=== PATIENT | female | born 1985 | race Caucasian/White ===

== ENCOUNTER 2016-09-07 10:29 | Emergency (ER) | payer OTHER ==
[~2016-09-07] VITALS: Ht 172.7 cm; Wt 104.3 kg
[~2016-09-07 10:29] MED LIST: ATIVAN0.5 M1 PO; AYGESTIN5 MG PO; IBUPROFEN800 MG PO; KEFLEX500 M1 PO; LEXAPRO20 M1 PO; LIDOCAINE51 TOP; LIDODERM 5% PAT1 PAT TOP; PERCOCET 325 MG1 TA2 PO; PRENATAL1 TA2 PO; [UNRECOGNIZED DRUG - OTHER] PO
--- NOTE | 2016-09-07 11:21 | ED GI/GU/ABDOMINAL COMPLAINT ---
History of Present Illness General Chief Complaint: Female Urogenital Problems Stated Complaint: MENSTRUAL BLEEDING X 4 WEEKS,CRAMPING Source: patient, family Exam Limitations: no limitations Vital Signs & Intake/Output Vital Signs & Intake/Output Vital Signs Date Time Temp Pulse Resp B/P Pulse O2 O2 Flow FiO2 Ox Delivery Rate 09/07 1042 96.7 80 16 119/76 97 Room Air Allergies Coded Allergies: chlorhexidine (Intermediate, RASH 04/25/16) Reconcile Medications Escitalopram Oxalate (Lexapro) 20 MG TABLET 1 TAB PO DAILY MENTAL HEALTH ( Reported) Lorazepam (Ativan) 0.5 MG TABLET 1 TAB PO BIDP PRN ANXIETY (Reported) Norethindrone (Aygestin) 5 MG TABLET 1 TAB PO QPM MENSTRUAL BLEEDING ( Reported) Triage Note: PT STATES SHE HAS HAD HER MENSES SINCE . AND SHE HAS BEEN GETTING MIRGRAINS SINCE. PT STATES SHE FEELS HERNANDEZ IN HER SHOULDERS AND NECK AND IS HAVING BAD CRAMPING. PT CALLED HER OBGYN DR. PLAZA AND WAS TOLD TO COME TO ED BECAUSE SHE HAS BEEN BLEEDING FOR SO LONG. PT STATES SHE HAS BEEN USING 1 PAD EVERY 2 HOURS AND SHE HAS A LOT OF CLOTS. Triage Nurses Notes Reviewed? yes ? n Is pt currently ? No HPI: Patient presents to the emergency department with vaginal bleeding that she has been experiencing for the past 4 weeks constant. Patient states she goes through a pad approximately every 2 hours and she is getting multiple clots in the point that she also has to wear depend over the pad. Patient denies any pain. Patient states for the past 2 days she has been feeling lightheaded when she stands up and walks around. There is no nausea or vomiting. There are no fevers or chills. Patient called her resin maker and was instructed to come to the emergency room for evaluation. Past History Travel History Traveled to [place] past 21 day No Medical History Any Pertinent Medical History? see below for history Psychiatric: anxiety, depression Surgical History Surgical History: Psychosocial History What is your primary language Tongan Tobacco Use: Current Daily Use Daily Tobacco Use Amount/Type: => 5 Cigarettes daily ETOH Use: occasional use Illicit Drug Use: denies illicit drug use Family History Hx Contributory? No Review of Systems Review of Systems Constitutional: Reports: no symptoms. EENTM: Reports: no symptoms. Respiratory: Reports: no symptoms. Cardiovascular: Reports: no symptoms. GI: Reports: no symptoms. Genitourinary: Reports: see HPI. Musculoskeletal: Reports: no symptoms. Skin: Reports: no symptoms. Neurological/Psychological: Reports: no symptoms. Hematologic/Endocrine: Reports: no symptoms. Immunologic/Allergic: Reports: no symptoms. All Other Systems: Reviewed and Negative Physical Exam Physical Exam General Appearance: well developed/nourished, alert, awake, mild distress Head: atraumatic, normal appearance Eyes: Bilateral: PERRL, EOMI, other (PINK CONJUNCTIVA). Ears, Nose, Throat, Mouth: hearing grossly normal, moist mucous membrane Neck: normal inspection, supple, full range of motion Respiratory: normal breath sounds, chest non-tender, no respiratory distress, lungs clear Cardiovascular: regular rate/rhythm, normal peripheral pulses Gastrointestinal: normal bowel sounds, soft, non-tender, no organomegaly Pelvic: slow trickle of blood from the os Back: normal inspection, normal range of motion Extremities: normal range of motion Neurologic/Psych: no motor/sensory deficits, awake, alert, oriented x 3, normal gait, normal mood/affect Skin: intact, normal color, warm/dry Core Measures ACS in differential dx? No Severe Sepsis Present: No Septic Shock Present: No Progress Differential Diagnosis: ectopic , intrauterine , PID/ cervicitis, threatened AB, UTI/pyelo Plan of Care: Orders Procedure Date/time Status URINALYSIS 09/07 1034 Active HUMAN BETA HCG TITRE 09/07 1034 Complete COMPREHENSIVE METABOLIC PANEL 09/07 1034 Complete CBC WITHOUT DIFFERENTIAL 09/07 1034 Complete Current Medications Sig/Dottie Start time Last Medication Dose Stop Time Status Admin Ketorolac 30 MG ONCE ONE 09/07 1130 CAN Tromethamine 09/07 1131 (Toradol) Sodium Chloride 1,000 ML BOLUS ONE 09/07 1130 CAN (Normal Saline 0.9%) 09/07 1229 Laboratory Tests 09/07/16 1134: Anion Gap 8, Estimated GFR > 60, BUN/Creatinine Ratio 14.3, Glucose 100 H, Calcium 9.4, Total Bilirubin 0.4, AST 14, ALT 25, Alkaline Phosphatase 47, Total Protein 6.9, Albumin 4.2, Globulin 2.7, Albumin/Globulin Ratio 1.6, Beta HCG, Quant < 2.4, CBC w Diff NO MAN DIFF REQ, RBC 4.73, MCV 83.7, MCH 27.7, RDW 17.4 H, MPV 8.6, Gran % 78.7 H, Lymphocytes % 17.8 L, Monocytes % 3.0, Eosinophils % 0.4, Basophils % 0.1, Absolute Granulocytes 8.7 H, Absolute Lymphocytes 2.0, Absolute Monocytes 0.3, Absolute Eosinophils 0, Absolute Basophils 0, PUBS MCHC 33.1 Initial ED EKG: none Comments: D/W Dr. Rush, start Aygestin twice a day for 10 days and follow up in the office for an ultrasound. Departure Departure Disposition: HOME OR SELF CARE Condition: Stable Clinical Impression Primary Impression: Dysfunctional uterine bleeding Referrals: DYANA BOLANOS,KENYA MATA DO,HUY López (PCP/Family) Additional Instructions: take Aygestin 1 pill twice a day for 10 days follow up with Dr. Plaza's office for an ultrasound return if symptoms worsen or for any concerns Departure Forms: Customer Survey General Discharge Information Prescriptions: Current Visit Scripts Norethindrone (Aygestin) 1 TAB PO BID #20 TAB
[2016-09-07 11:48] LABS: ABSOLUTE BASOPHIL COUNT 0 /CUMM (0.0-0.2); ABSOLUTE EOSINOPHIL COUNT 0 /CUMM (0.0-0.7); ABSOLUTE GRANULOCYTE CT 8.7 /CUMM (1.4-6.5); ABSOLUTE MONOCYTE COUNT 0.3 /CUMM (0.10-0.60); BASOPHIL % 0.1 % (0.0-2.0); EOSINOPHIL % 0.4 % (0-5); GRANULOCYTE % 78.7 % (42.2-75.2); HEMATOCRIT 39.5 % (37-47); MEAN CORPUSCULAR HGB 27.7 PG (27.0-31.0); MEAN CORPUSCULAR HGB CONC 33.1 G/DL (33.0-37.0); MEAN CORPUSCULAR VOLUME 83.7 FL (81.0-99.0); MEAN PLATELET VOLUME 8.6 FL (7.4-10.4); PLATELET COUNT 322 /CUMM (130-400); RBC DISTRIBUTION WIDTH 17.4 % (11.5-14.5); RED BLOOD CELL CT 4.73 /CUMM (4.20-5.40)
[2016-09-07] MEDS ORDERED: AYGESTIN5 MG PO (13:04)
[2016-09-07 13:05] VITALS: BP 120/75
== END 2016-09-07 13:33 ==
LOC: ERH 10:29
PROVIDERS: Emergency Medicine
DX: N93.8 Other specified abnormal uterine and vaginal bleeding (principal)
CPT/HCPCS: 81001; 96372; J1885